=== PATIENT | male | born 1990 | race Hispanic/Latino ===

== ENCOUNTER 2022-02-16 17:21 | Emergency (ER) | payer SELFPAY ==
--- OUTSIDE RECORDS SUMMARY | 2022-02-16 17:24 | XMS REPORT | Continuity of Care Document ---
:1990 Author Organization [facility] t Address [address] [place] [address] Care Team Providers Name Role Phone CONNIE KHALIL Attending Clinician Unavailable Problems This patient has no known problems. Allergies, Adverse Reactions, Alerts Allergy Allergy Status Severity Reaction(s) Onset Inactive Treating Comm ents Source Name Type Date Date Clinician SHELLFIS DRUG Active High Anaphylaxis Uni vers H INGREDI 03-11 ity of DERIVED 00:00: [address] Medications This patient has no known medications. Procedures This patient has no known procedures. Encounters Start End Encounter Admission Attending Care Care Encounter Source Date/Time Date/Time Type Type Clinicians Facility Department ID 2019-10-24 2019-10-24 Emergency X [facility] [place] ERT [id number] [facility] 11:16[facility]00 [facility]16[facility] 2019-10[facility] 2019-10-22 Emergency X [facility] [id number] [facility] 18:11:00 18:11:00 [facility] Results This patient has no known results.
--- NOTE | 2022-02-16 18:58 | RAD REPORT ---
EXAM DESCRIPTION: US - Extremity Nonvascular Limited - 02/16/2022 6:17 pm CLINICAL HISTORY: evaluate nodule left chest COMPARISON: No comparisons FINDINGS: Limited sonographic evaluation was performed of a palpable abnormality in the chest. The site of clinical concern there is a 10 millimeter oval thin walled anechoic cyst. Posterior acous tic enhancement is seen. There is no septation or mural nodule. Doppler evaluation shows no abnormal vasculature along the rim of this cyst or in the adjacent tissues. IMPRESSION: Imaging characteristics are nonspecific. An aggressive or infectious process is not susp ected. A sebaceous cyst is possible.
--- NOTE | 2022-02-16 19:02 | EDPHYS ---
Physician Documentation [facility] Name: Jospeh Rockwell Age: 31 yrs Sex: Male : 1990 Arrival Date: 02/16/2022 Time: 17:24 Bed DIS2 Private MD: ED Physician Matty Hutson HPI: 02/16 19:17 This 31 yrs old Male presents to ER via Ambulatory with complaints of Lump to kb left upper quadrant. 19:20 the patient presents with a swollen area of the left upper quadrant. Description: Lump. kb Onset: The symptoms/episode began/occurred 4 month(s) ago. Possible cause(s): unknown. Associated signs and symptoms: The patient has no apparent associated signs or symptoms. Modifying factors: the symptoms are alleviated by nothing, the symptoms are aggravated by nothing. Severity of symptoms: At their worst the symptoms were mild, in the emergency department the symptoms are unchanged. The patient has not experienced similar symptoms in the past. The patient has not recently seen a physician. Patient reports lump under skin to left upper quadrant that he noticed 4 months ago.. Historical: - Allergies: 17:57 No Known Allergies; kb3 - Home Meds: 17:57 None [Active]; kb3 - PMHx: 17:57 None; kb3 - PSHx: 17:57 None; kb3 - Immunization history:: Adult Immunizations up to date, Client reports receiving the 2nd dose of the Covid vaccine, Last tetanus immunization: up to date. - Social history:: Smoking status: Patient denies any tobacco usage or history of. ROS: 19:19 Constitutional: Negative for fever, chills, and weight loss. kb 19:19 Skin: Positive for of the left upper quadrant, Lump under skin. 19:19 All other systems are negative. Exam: 19:19 Constitutional: This is a well developed, well nourished patient who is awake, alert, kb and in no acute distress. Head/Face: Normocephalic, atraumatic. ENT: Moist Mucous membranes Cardiovascular: Regular rate and rhythm with a normal S1 and S2. No gallops, murmurs, or rubs. No pulse deficits. Respiratory: Respirations even and unlabored. No increased work of breathing. Talking in full sentences Abdomen/GI: Soft, non-tender. No distention Skin: Warm, dry with normal turgor. Normal color. MS/ Extremity: Pulses equal, no cyanosis. Neurovascular intact. Full, normal range of motion. Neuro: Awake and alert, GCS 15, oriented to person, place, time, and situation. Moves all extremities. Normal gait. Psych: Awake, alert, with orientation to person, place and time. Behavior, mood, and affect are within normal limits. 19:19 Abdomen/GI: Inspection: Nodule palpated to left upper quadrant. No swelling, redness, warmth to area. Vital Signs: 17:55 BP 126 / 76; Pulse 58; Resp 18; Temp 98.7; Pulse Ox 100% ; Weight 86.18 kg; Height 5 kb3 ft. 10 in. (177.80 cm); Pain 7/10; 17:55 Body Mass Index 27.26 (86.18 kg, 177.80 cm) kb3 MDM: 17:58 Patient medically screened. kb 19:18 Data reviewed: vital signs, nurses notes. Data interpreted: Pulse oximetry: on room air kb is 100 %. Interpretation: normal. Counseling: I had a detailed discussion with the patient and/or guardian regarding: the historical points, exam findings, and any diagnostic results supporting the discharge/admit diagnosis, radiology results, the need for outpatient follow up, a family practitioner, a general surgeon, to return to the emergency department if symptoms worsen or persist or if there are any questions or concerns that arise at home. ED course: I considered the following discharge prescriptions or medication management in the emergency department: Antibiotics considered but no signs of abscess or infection; History obtained from: Patient . 19:21 Differential diagnosis: abscess, cellulitis, insect bite, cyst. kb 02/16 18:01 Order name: US LenzNEBOTRADE; Complete Time: 19:00 kb Administered Medications: No medications were administered Disposition: 19:17 Co-signature as Attending Physician, Matty ROJAS was immediately available on-site ms3 in the Emergency Department for consultation in the care of the patient. Disposition Summary: 02/16/22 19:02 Discharge Ordered Location: Home kb Condition: Stable kb Diagnosis - Cyst kb Followup: kb - With: Emergency Department - When: As needed - Reason: Worsening of condition Followup: kb - With: Private Physician - When: 2 - 3 days - Reason: Recheck today's complaints, Continuance of care, Re-evaluation by your physician Discharge Instructions: - Discharge Summary Sheet kb - Epidermal Cyst kb Forms: - Medication Reconciliation Form kb - Thank You Letter kb - Antibiotic Education kb - Prescription Opioid Use kb Signatures: Dispatcher [employer] Tammy Trevizo, Matty Maya, DO ms3 Celina Rayo, RN RN kb3
--- NOTE | 2022-02-16 19:02 | ER ---
Nurse's Notes [facility] Name: Joseph Rockwell Age: 31 yrs Sex: Male : 1990 Arrival Date: 02/16/2022 Time: 17:24 Bed DIS2 Private MD: Diagnosis: Cyst Presentation: 02/16 17:55 Chief complaint: Patient states: [place]-sized lump underneath left lower ribs x4 months kb3 that has increased in size and has become painful x 1 day. Coronavirus screen: Vaccine status: Patient reports receiving the 2nd dose of the covid vaccine. Client denies travel out of the [place] in the last 14 days. Ebola Screen: Patient negative for fever greater than or equal to 101.5 degrees Fahrenheit, and additional compatible Ebola Virus Disease symptoms Patient denies exposure to infectious person. Patient denies travel to an Ebola-affected area in the 21 days before illness onset. Initial Sepsis Screen: Does the patient meet any 2 criteria? No. Patient's initial sepsis screen is negative. Does the patient have a suspected source of infection? No. Patient's initial sepsis screen is negative. Risk Assessment: Do you want to hurt yourself or someone else? Patient reports no desire to harm self or others. Onset of symptoms is unknown. 17:55 Method Of Arrival: Ambulatory kb3 17:55 Acuity: MAYRA 4 kb3 Triage Assessment: 17:57 General: Appears in no apparent distress. Behavior is calm, cooperative. Pain: kb3 Complains of pain in left upper quadrant Pain does not radiate. Pain currently is 7 out of 10 on a pain scale. GI: Patient currently denies constipation, diarrhea, nausea, vomiting. Historical: - Allergies: 17:57 No Known Allergies; kb3 - Home Meds: 17:57 None [Active]; kb3 - PMHx: 17:57 None; kb3 - PSHx: 17:57 None; kb3 - Immunization history:: Adult Immunizations up to date, Client reports receiving the 2nd dose of the Covid vaccine, Last tetanus immunization: up to date. - Social history:: Smoking status: Patient denies any tobacco usage or history of. Vital Signs: 17:55 BP 126 / 76; Pulse 58; Resp 18; Temp 98.7; Pulse Ox 100% ; Weight 86.18 kg; Height 5 kb3 ft. 10 in. (177.80 cm); Pain 7/10; 17:55 Body Mass Index 27.26 (86.18 kg, 177.80 cm) kb3 ED Course: 17:24 Patient arrived in ED. as 17:27 Tammy Child FNP-C [facility]. kb 17:27 Matty Hutson DO is Attending Physician. kb 17:57 Triage completed. kb3 17:57 Arm band placed on right wrist. kb3 18:19 US Extrmty Nonvasular Limited In Process Unspecified. EDMS Administered Medications: No medications were administered Outcome: 19:02 Discharge ordered by MD. kb 19:52 Patient left the ED. zm Signatures: Dispatcher [employer] EDMS Tammy Child FNP-C FNP-Ckb Martinez, Amelia as Martinez, Zaina zm Bradberry, Kelly, RN RN kb3
[2022-02-16 20:03] VITALS: BP 126/76; TEMP 98.7; O2SAT 100
== END 2022-02-16 19:52 | disposition home or self-care (01) ==
LOC: ER 17:21
DX: L72.9 Follicular cyst of the skin and subcutaneous tissue, unspecified (principal)
CPT/HCPCS: 76882; 99282